=== PATIENT | female | born 2000 | race Caucasian/White ===

== ENCOUNTER 2021-04-02 10:46 | Day surgery (SDC) | payer OTHER ==
[~2021-04-02] VITALS: Ht 172.7 cm; Wt 62.5 kg
[~2021-04-02 10:46] MED LIST: ACETAMINOPHEN 500 MG TABLET PO PRN; CLON-77 PO; DEXAMETHASONE SOD PHOS 4 MG/ML VIAL ONE; HYDROmorphone 2 MG/ML VIAL IVP PRN; IV RINGERS,LACTATED 1000ML 1,000 ML IV SCH; LIDOCAINE 2% PF 5 ML VIAL. ONE; METH10TA4 PO; MIDO10TA PO; MORPHINE SULFATE 2 MG/ML INJ. IVP PRN; OMEP20TA63 PO; ONDANSETRON PF 4 MG/2 ML VIAL. ONE; PRAZ5CAP2 PO; PROCHLORPERAZINE 10 MG/2 ML VIAL. IVP PRN; PROPOFOL 10 MG/ML (20ML) VIAL. IV ONE; TRAZ150T49 PO; VENL150C PO; fentaNYL PF VIAL 100 MCG/2 ML VIAL IVP PRN
[2021-04-02 11:05] VITALS: BP 111/71
[2021-04-02] MEDS ORDERED: METO50TA4 PO (11:13)
[2021-04-02] MEDS ORDERED: BUPIVACAINE MPF 0.25% 30 ML VIAL. ONE (11:38)
[2021-04-02] MEDS ORDERED: HEPARIN PF 500 UNIT/5 ML DISP.SYRIN. IVP ONE ×4 (11:38→15:15)
[2021-04-02] MEDS ORDERED: HEPARIN for IV BOLUS 10,000 UNIT/10 ML VIAL. ONE (11:56)
[2021-04-02] MEDS ORDERED: fentaNYL PF VIAL 100 MCG/2 ML VIAL ONE (12:25)
[2021-04-02] MEDS ORDERED: MIDAZOLAM HCL/PF 2 MG/2 ML VIAL. ONE (12:25)
[2021-04-02] MEDS ORDERED: SEVOFLURANE 31 TO 60 MINUTES. IH ONE (13:11)
--- NOTE | 2021-04-02 13:42 | PDOC4 ---
Operative Note Operative Note Date: April 02, 2021 at 1338 Preoperative diagnosis: Gastroparesis Postoperative diagnosis: Same Procedure: Port-A-Cath placement right subclavian Surgeon: Abilio Specimen: None Dictation: Patient is 21-year-old female with severe gastroparesis and has episodes of times when she cannot drink or eat comes quite dehydrated and needs IV access to have fluids and is running out of peripheral IV access. Procedure of Port-A-Cath placement was explained to the patient detail risk benefits were also discussed including bleeding infection possible pneumothoraces. Patient seemed understand and gave a verbal written consent to have the procedure performed. Patient was taken to the operating room placed in the supine position general anesthesia was initiated once patient was sleeping intubated her neck and chest were prepped and draped usual sterile fashion using ChloraPrep. Area over the deltopectoral groove was injected with quarter percent Marcaine plain incision was made with 15 blade scalpel is carried down to subcutaneous tissue using electrocautery to provide hemostasis search was performed for the cephalic vein which could not be visualized so attention was then turned to accessing the subclavian was accessed with a small needle and small wire small catheter was then placed over the wire wire was removed a larger wire was then placed under fluoroscopy which showed passing inferiorly to the superior vena cava. A peel-away dilator was then placed over the wire wire was removed along with dilator. The catheter was then placed through the peel- away access in the subclavian was passed inferiorly to the superior vena cava this was all visualized under fluoroscopy. The peel-away was then removed the p ort was then placed on the end of the catheter. The port was then pulled sewn into place with a 3-0 Prolene interrupted sutures to the anterior abdominal wall. The port was then accessed using hep flush solution there was good blood return and flushed easily the wound was then closed in 2 layers the deep layer running 3-0 Vicryl the skin was reapproximated 4-0 subcuticular Monocryl. Port was then accessed again and flushed with 2 cc of 1000 units per mill of heparin. Mastisol Steri-Strips and island dressing were applied. Patient was awakened and extubated in the operating room taken to recovery in stable condition all sponge instrument needle counts listed as correct estimated blood loss 10 mL MEME YANES MD Apr 02, 2021 13:41
[2021-04-02] MEDS ORDERED: HYDR-2761 PO (13:44)
--- NOTE | 2021-04-02 13:47 | DISCH ---
DISCHARGE INSTRUCTIONS Condition on Discharge Condition on Discharge: Stable Activity After Discharge Activity Instructions for Disc: Avoid exertion Diet after Discharge Diet after Discharge: Regular Wound Incision Care Other wound/incision instructi: May shower in 24 hours Contacting the after DC Call your doctor for: If your condition worsens Follow-Up Follow up with: Dr. Yanes in 2-week MEME YANES MD Apr 02, 2021 13:47
[2021-04-02] MEDS ORDERED: PROPOFOL 10 MG/ML (20ML) VIAL. IV ONE (13:53)
--- NOTE | 2021-04-02 14:20 | RAD ---
Single view of the chest. 04/02/2021 2:06 PM Indication: POST OP PORT PLACEMENT Comparison: None Findings: There is no focal consolidation. There is no pleural effusion or pneumothorax. Heart size i s normal. There is a right-sided port with catheter tip projecting over the expected region of the ca voatrial junction. No acute osseous abnormalities are seen. Impression: 1. Right-sided port with catheter tip projecting over the expected region of the cavoatrial junction0 2. No pneumothorax or other acute cardiopulmonary process. Electronically signed by: Robert Ortiz MD (04/02/2021 2:18 PM) [id number]
[2021-04-02] MEDS ORDERED: HYDROcodone/APAP 5/325MG 1 TAB TABLET PO ONE (14:45)
[2021-04-02 15:00] VITALS: BP 109/55
== END 2021-04-02 15:30 | disposition home or self-care (01) ==
LOC: SURG 10:46
PROVIDERS: ATTEND Surgery
DX: Z45.2 Encounter for adjustment and management of vascular access device (principal); K31.84 Gastroparesis; K21.9 Gastro-esophageal reflux disease without esophagitis; F41.9 Anxiety disorder, unspecified; F32.9 Major depressive disorder, single episode, unspecified; Z79.899 Other long term (current) drug therapy; Z88.0 Allergy status to penicillin; Z88.1 Allergy status to other antibiotic agents; Z88.2 Allergy status to sulfonamides; Z88.8 Allergy status to other drugs, medicaments and biological substances
CPT/HCPCS: 36561; 71045; 81025; A4364; A4930; A6219; A6258; C1788; J1100; J1642; J1644; J1956; J2250; J2405; J2704; J3010; J3490; 76000; A4452